=== PATIENT | female | born 1935 | race Caucasian/White ===

== ENCOUNTER → 2017-12-21 18:19 | Outpatient (REF) | payer MEDICARE, OTHER, SELFPAY | LOC: LAB 18:19 | PROVIDERS: PCP Dermatology | DX: Z48.817 Encounter for surgical aftercare following surgery on the skin and subcutaneous tissue (principal) | CPT/HCPCS: 87070; 87075; 87077; 87186; 87205 ==

== ENCOUNTER → 2018-10-22 14:05 | Outpatient (CLI) | payer MEDICARE, OTHER, SELFPAY ==
[2018-10-22 14:25] LABS: RBC Urine None Seen (0-5/HPF)
[2018-10-22 14:54] LABS: Add Manual Diff / Slide Review NO; Basophils Absolute Auto 0 /uL (0-100); Basophils Percent Auto 0.4 % (0-2); Eosinophils Absolute Auto 100 /uL (0-450); Eosinophils Percent Auto 1.4 % (2-4); Hematocrit 41.1 % (36-46); Lymphocytes Absolute Auto 1900 /uL (1100-4500); Lymphocytes Percent Auto 28.4 % (25-40); Mean Corpuscular HGB Conc 34.2 % (30-36); Mean Corpuscular Hemoglobin 31.7 PG (26-34); Mean Corpuscular Volume 92.8 fL (80-100); Monocytes Absolute Auto 500 /uL (0-900); Neutrophils Absolute Auto 4200 /uL (1500-7000); Neutrophils Percent Auto 62.8 % (50-75); Platelet Count 225 X10^3/uL (150-400); Red Blood Cell Count 4.43 X10^6/uL (4.0-5.2); Red Cell Distribution Width 12.9 % (11.6-14.8); White Blood Cell Count 6.8 X10^3/uL (4.5-11.0)
[2018-10-22 15:14] LABS: Hemoglobin A1C% w Est Avg Glu 6.4 % (4.0-6.0)
[2018-10-22 15:16] LABS: BUN Creatinine Ratio 18.6 (6-22); Blood Urea Nitrogen 13 mg/dL (7-17); Calcium 10.2 mg/dL (8.4-10.2); Carbon Dioxide 31 mmol/L (22-32); Chloride 97 mmol/L (98-107); Estimated Glomerular Filt Rate > 60.0 mL/min (>60); Glucose 124 mg/dL (80-110); HEMOLYSIS < 15 (0-50); Sodium 137 mmol/L (137-145)
[2018-10-22 18:09] LABS: Appearance Urine UA CLOUDY; Bilirubin Urine UA NEGATIVE (NEGATIVE); Color Urine UA YELLOW; Glucose Urine UA NEGATIVE (Negative); Ketones Urine UA NEGATIVE (NEGATIVE); Leukocyte Esterase Urine UA 3+ (NEGATIVE); Nitrite Urine UA NEGATIVE (Negative); Occult Blood Urine UA TRACE-LYSED (Negative); Protein Urine UA NEGATIVE (Negative); Urobilinogen Urine UA 0.2 E.U./dL (0.2); pH Urine UA 7.5 (4.5-8.0)
[2018-10-22 18:22] LABS: Bacteria Urine Few (2-10); Squamous Epithelial Cell Urine 10-30 /HPF (0-5/HPF); WBC Urine 0-1/HPF (0-5/HPF)
== END ==
PROVIDERS: Family Provider Internal Medicine; PCP Internal Medicine; Visit Provider Orthopaedic Surgery
DX: Z01.818 Encounter for other preprocedural examination (principal); Z01.812 Encounter for preprocedural laboratory examination; N39.9 Disorder of urinary system, unspecified; R73.9 Hyperglycemia, unspecified; Z13.1 Encounter for screening for diabetes mellitus
CPT/HCPCS: 36415; 80048; 81001; 83036; 85025; 93005

== ENCOUNTER 2018-11-16 06:06 | Inpatient (IN) | payer MEDICARE, OTHER, SELFPAY ==
[2018-11-03 08:57] VITALS: BMI 27.4
[2018-11-16] VITALS (20 sets, daily range): BP systolic 98–173; BP diastolic 46–90; PULSE 58–99; RESP 8–18; TEMP 35.9–36.6; O2SAT 92–100; BMI 27.6
--- NOTE | 2018-11-16 | DI.RAD.S_ITS ---
PROCEDURE: XR HIP W PEL IF DONE RT 2V INDICATIONS: POST OPERATIVE RIGHT HIP TECHNIQUE: AP pelvis and lateral view of the pelvis and hip acquired. COMPARISON: [facility], CR, XR HIP W PEL IF DONE RT 2V, 11/16/2018, 9:34. FINDINGS: Bones: Patient is status post bilateral hip arthroplasty procedures, with hardware components in expected positions. The right hip joint appears to be the laterality of recent surgery earlier today, and the left hip arthroplasty appears chronic. Right hip arthroplasty components are congruent and normally aligned. The visualized bony structures appear intact. Soft tissues: Overlying postoperative changes are noted. No suspicious soft tissue densities. IMPRESSION: Normal alignment established after right total hip arthroplasty. Dictated by: Rafael Agudelo M.D. on 11/16/2018 at 12:43 Approved by: Rafael Agudelo M.D. on 11/16/2018 at 12:44
--- NOTE | 2018-11-16 06:00 | DI.RAD.S_ITS ---
PROCEDURE: XR HIP W PEL IF DONE RT 2V INDICATIONS: ANTERIOR RIGHT HIP TECHNIQUE: Multiple views of the right hip were acquired. COMPARISON: None. FINDINGS: Bones: No fractures or dislocations. No evidence of arthroplasty loosening from this examination. Additional left hip arthroplasty is present No suspicious bony lesions. The visualized pelvic ring appears intact. Soft tissues: No suspicious soft tissue calcifications or masses. IMPRESSION: Motion of the right lower extremity was performed during image acquisition and no evidence of device loosening or disruption at the right total hip arthroplasty is found. Partially visualized left total hip arthroplasty incidentally noted but not fully evaluated. Dictated by: Rafael Agudelo M.D. on 11/16/2018 at 11:39 Approved by: Rafael Agudelo M.D. on 11/16/2018 at 11:40
[2018-11-16] MEDS: VANCOMYCIN 1,000 MG/200 ML PIGGYBACK 200 MG IV (06:48)
[2018-11-16] MEDS: CELECOXIB 200 MG CAPSULE PO (06:48)
[2018-11-16] MEDS: LACTATED RINGERS 1,000 ML 42 ML IV ×2 (06:48→09:26)
[2018-11-16] MEDS: ACETAMINOPHEN 325 MG TABLET 975 MG PO ×3 (06:48→21:40)
[2018-11-16] MEDS: PREGABALIN 75 MG CAPSULE PO (06:48)
--- NOTE | 2018-11-16 07:33 | SUR.OPER ---
Head on pillow. Supine on Ethel table with operative leg secured in traction. Other leg secured in padded stirrup. Arms across chest, secured with sheet.
--- NOTE | 2018-11-16 07:46 | PM.PREOP ---
Pre-operative Note Interval Note History & Physical reviewed/Exam performed by Physician: Yes Changes to H&P: No
--- NOTE | 2018-11-16 07:54 | P.OP_ITS ---
Operative Date/Time/Diagnoses Date of procedure: 11/16/18 Time of procedure: 07:46 Pre-op diagnosis: right hip OA Post-op diagnosis: same Procedure & Clinicians Procedure: right total hip arthroplasty Same procedure as scheduled: Yes Indications: The patient has had progressively worsening right hip pain with radiographic changes consistent with arthritis. Non-operative management has failed and the patient has requested total hip replacement. The risks, benefits and alternatives to surgery were discussed with the patient prior to proceeding. Risks discussed included, but were not limited to, failure to relieve pain, leg length discrepancy, dislocation, stiffness, infection, nerve damage, deep venous thrombosis, pulmonary embolism, stroke, coma, heart attack, permanent paralysis and , as well as the potential need for eventual revision of the prosthetic. Surgeon: Rosangela Lopez Condominium Property Manager: Carmina Roach Anesthesia Type: General and Spinal Operative Notes Findings: Severe right hip osteoarthritis, adequate stability Closure Type: primary Specimen(s): none sent Prosthetic devices, grafts, tissues, transplants, or devices: Lopez [employer] Nephew anthology size 6 standard offset, 56 R3 cup, neutral poly liner, 36 by -3 femoral head, 6.5 mm x 15 mm screw Estimated Blood Loss (mL): 250 Blood products transfused: none Procedure in detail: The patient was brought to the operating room. Patient was carefully positioned in the supine position. Time-out was performed and antibiotics were given. Anesthesia was induced. She was positioned in the on the table in order to allow hyperextension of the hip. The right lower extremities were prepped and draped in a standard sterile fashion. An anterior right hip incision was made 1 fingerbreadth lateral to the anterior superior iliac spine and extended distally towards the greater trochanter. Dissection was carried out through skin and subcutaneous tissues. The skin and subcutaneous tissues were carefully injected with Lidocaine with epi. Superficial hemostasis was achieved. The fascia over the tensor fascia catherine was defined and incised with a knife. Two Allis clamps were used to grasp the fascia. Tensor fascia catherine was retracted laterally. A gelpi retractor was placed. Dissection was carried out down along the neck. The circumflex vessels were carefully identified and cauterized with the Aqua Mantis. There was good visualization of the femoral neck. A Cobra was placed superior to the neck and the gluteus fibers were carefully stripped from that superior aspect of the capsule. A 2nd retractor was placed along the inferior aspect of the neck. The rectus insertion along the capsule was partially released. A 3rd retractor that was then gently placed over the rim of the acetabulum under the rectus. Capsule was carefully incised and released from the intertrochanteric line circumferentially superior to the mid sagittal line and inferiorly to the mid sagittal line until the lesser trochanter was palpable. A tag stitch was placed both in the superior and inferior limb of the capsular insertion. Along the acetabulum capsule was also released up to the mid sagittal 12:00 position. A portion of the labrum was resected. A saw was used to perform an osteotomy at the level of the intertrochanteric line and the junction of the superior femoral neck leaving approximately 1 finger breath of residual inferior neck above the lesser trochanter. A 2nd cut was made along the femoral neck at the base of the head and a napkin ring of neck was removed. Corkscrew was placed in the femoral head and the head was removed without difficulty. Retractors were then repositioned around the acetabulum. Residual labrum was resected and additional osteophytes were removed. A reamer that was 4 mm below the templated size was placed by hand in the acetabulum and it was reamed to centralize the acetabulum. It was then reamed up to 2 under the templated size and fluoroscopy was brought in to confirm the position of the reaming and depth of reaming. I reamed 1 under the anticipated size. A trial cup was placed and noted that it was appropriately sized and fluoroscopy confirmed position and depth. The component was open and inserted without difficulty fluoroscopic imaging was used to confirm that the cup had been adequately seated and was well positioned. A single stabilizing screw 6.5 mm x 15 mm was placed. There was good stability of the cup. Neutral poly liner was placed. The cup was tested and noted to be stable. Attention was then directed to the femur. The femur was gently hyperextended additional capsular release was performed as needed in order to allow adequate visualization of the proximal femur with elevation of the femur. Patient was placed in a hyperextended slightly adducted position with maximum external rotation. Box osteotome was used to check for any residual neck as well as sclerotic bone along the trochanter. Berclair pepper was placed in the femur. Additional broaching was performed. Canal finder was used to determine the alignment of the canal and position. Size 1 broach was placed. The canal was then appropriately broached up to the templated size as long as there was adequate stability of the broach and serial advancement of the broach without excessive impingement. Specific attention was directed at avoiding varus attempting to direct the distal aspect of the broach more anteriorly and avoiding excessive anteversion. Trial reduction showed acceptable range of motion, good stability, no posterior impingement, yarsanism of leg length and appropriate lateral shuck. I also hyperflexed the hip and checked that there was no impingement anteriorly and there was good stability with flexion, abduction and internal rotation. Marcaine and Exparel were injected.. The stem was placed without difficulty. Repeat trial reduction and x-ray showed acceptable overall position, length, and no evidence of the femoral fracture. Final head was placed. Wound was meticulously irrigated with normal saline. The hip was reduced and additional Exparel and Marcaine were injected. The capsule was closed with interrupted nonabsorbable sutures. The fascia of the tensor was closed with interrupted and running Vicryl. No drain was placed. Any tensor fascia catherine muscle that appeared to be contused or injured which was a minimal amount was carefully resected. Capsule around the tensor was injected with Exparel and Marcaine. The skin was closed with barbed stitches for the subcutaneous tissue and skin. We also used surgical glue. The wound was dressed sterilely. Brief Betadine soak was also used and was meticulously irrigated with normal saline. Patient was transferred to recovery room in satisfactory condition. Complications: none Condition: stable Disposition: Acute Care Plan for aftercare: The patient will be maintained on a standard total hip replacement protocol with weight bearing as tolerated and anterior hip precautions. The patient will receive Aspirin and sequential compression devices for DVT prophylaxis. The patient will be discharged home when safe for the home environment.
[2018-11-16] MEDS: CEFAZOLIN 2 GM/100 ML FROZ.PIGGY IV ×3 (08:00→23:50)
--- NOTE | 2018-11-16 08:39 | PC.NURSE ---
Day shift: Pt not on AC unit at this time.
[2018-11-16] MEDS: BUPIVACAINE LIPOSOME 266 MG/20 ML VIAL INJ (08:42)
[2018-11-16] MEDS: TRANEXAMIC ACID 1,000 MG VIAL 1000 MG INJ ×2 (08:42→11:19)
[2018-11-16] MEDS: BUPIVACAINE 0.25% W/ EPI 30 ML VIAL 60 ML INJ (08:43)
--- NOTE | 2018-11-16 13:11 | PC.NURSE ---
Day shift: Pt on AC unit at approx 1310 from PACU. Oriented to room and call light. 5 family members at bedside for support. VS WNL. Pt is sleepy. On 1L NC 94%. SCD's in place. 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 Anterior rt hip Aqquacel is CDI. Ice applied.
--- NOTE | 2018-11-16 13:18 | PC.NURSE ---
Day shift: Update. Pt on RA 95%.
[2018-11-16] MEDS: LACTATED RINGERS 1,000 ML 125 ML IV ×2 (15:47→21:42)
--- NOTE | 2018-11-16 16:00 | PT.IIE ---
Current Diagnoses Unilateral primary osteoarthritis, right hip (11/16/18) Pain in right hip (11/16/18) Surgery Performed Operation Date: 11/16/18 07:45 Actual Procedures p Total Hip Arthroplasty/Anterior Approach(Right) - Rosangela Lopez MD Surgical History (Last Updated 11/03/18 @ 09:16 by Chica Gibbs, RN) History of total left hip arthroplasty (Acute 02/05/13) Hx of bilateral cataract extraction (Acute) Medical History (Last Updated 11/03/18 @ 12:24 by Chica Gibbs RN) BCC (basal cell carcinoma) (Acute) Benign essential tremor (Acute) Diabetes (Acute) H/O: hysterectomy (Acute) HLD (hyperlipidemia) (Acute) HTN (hypertension) (Acute) Osteoarthritis (Acute) Prolapsed bladder (Acute) SCC (squamous cell carcinoma) (Acute) Physical Therapy Inpatient Evaluation/Re-Eval M1 PT/OT-IP Prior Functional Status Start: 11/16/18 17:45 Freq: NEEDED Status: Active Protocol: Document 11/16/18 16:00 AB (Rec: 11/16/18 17:59 AB [id number]) Medical Review Prior Functional Status Medical History Reviewed Yes Communication able to make needs known Mobility and Gait pt stated that she is independent with all mobilities and ambulation without AD Social History Household Members none Living Arrangements House Number of Floors (Floors) One Floor Number of Stairs To Enter/Railing? pt lives in the same property as her daughter. no steps to enter Home Environment High Toilet Walk in Shower Home Equipment Front Wheel Walker Shower Seat with Backrest Hand Held Shower Grab Bars In Shower Additional Social History Comment pt stated that she sleeps on a recliner M2 PT-IP Current Condition Start: 11/16/18 17:45 Freq: NEEDED Status: Active Protocol: Document 11/16/18 16:00 AB (Rec: 11/16/18 17:59 AB [id number]) Physical Therapy Current Condition Current Condition Evaluation Date 11/16/18 Treatment Diagnosis s/p R LASHONDA anterior approach; difficulty in walking Onset Date 11/16/18 Precautions Anterior Hip Precautions No Hip Extension No Hip External Rotation Weight Bearing Status Weight Bearing Status Weight Bear as Tolerated M3 PT-IP Subjective Start: 11/16/18 17:45 Freq: NEEDED Status: Active Protocol: Document 11/16/18 16:00 AB (Rec: 11/16/18 17:59 AB [id number]) Subjective Physical Therapy Visit Type Type Initial Evaluation Visit Start Time 16:00 Visit Stop Time 16:40 Total Visit Minutes 40 Number of BLOCK AND CASE MAKER Visits 0 Physical Therapy Visit Comments Patient Comments pt agreeable to do PT Therapy Pain Assessment Pain Present Pain Present Denied Pain M4 PT-IP Mobility and Gait Start: 11/16/18 17:45 Freq: NEEDED Status: Active Protocol: Document 11/16/18 16:00 AB (Rec: 11/16/18 17:59 AB [id number]) PT-Bed Mobility Assessment Supine to Sit Supine to Sit Standby Assistance PT-Transfer Assessment Sit to and From Stand Sit to and from Stand Minimal Assistance Equipment Transfer Assistive Device Gait Belt Front Wheeled Walker Orthotic/Prosthetic Devices or Brace: No Transfers Transfer Destination Toilet Transfer Technique pt ambulated using FWW Transfer Ability Level of Assist Minimal Assistance 1 Person Assistance Use of Upper Extremities Comments Mobility Comments BP in supine 123/68. pt completed bed mobility supine to sit SBA. c/o feeling dizzy . BP: 141/73. pt requested to use the toilet. pt ambulated to the toilet using FWW min A and cues for hip precautions. pt's daughter in room with pt. PT stepped out to let NAC know that pt needs a brief. when PT came back, pt was coughing. daughter stated that pt drank some water and usually has coughs afterwards even prior to surgery due to allergies. pt then threw up. assisted with gown change. nurse and NAC also present. pt ambulated out of the room min A using FWW and instructed to sit on chair. BP checked: 151/78. pt requested to do more ambulation and completed. positioned pt on chair and after a few minutes again, pt was coughing and threw up. NAC informed and NAC took over to assist pt. informed pt's nurse regarding coughing after drinking water and to observe pt and if needed, request for speech eval/screen order. Nurse understood and agreed. Gait Assessment Gait Gait Assistance Required: Minimum Assistance Distance (Feet) 35 Able to Maintain Weight Bearing Status Yes During Gait Assistive Devices Assistive Device Gait Belt Front Wheeled Walker Orthotic/Prosthetic Devices or Brace: No Gait Deviations General Gait Pattern Antalgic Decreased Feet Clearance Factors Limiting Gait Function Factors Limiting Gait Function Decreased Activity Tolerance Decreased Strength Difficulty Following Directions Poor Balance Poor Safety Awareness PT-Balance Assessment Sitting Balance and Reactions Static Sitting Balance Ability Good Dynamic Sitting Balance Ability Good Standing Balance and Reactions Static Standing Balance Ability Fair Dynamic Standing Balance Ability Fair Device Used FWW M5 PT-IP Objective Assessments Start: 11/16/18 17:45 Freq: NEEDED Status: Active Protocol: Document 11/16/18 16:00 AB (Rec: 11/16/18 17:59 AB [id number]) Orientation Orientation/Cognition Level of Alertness Alert Orientation Name Place Situation Safety Awareness Decreased Safety Awareness Memory Description Short Term Impaired Gross Range of Motion Lower Extremity ROM Assessment Within Functional Limits Strength Lower Extremity Strength Assessment Right Impaired Hip 3+/5 Knee 4-/5 Coordination Assessment Gross Coordination Gross Coordination WNL Sensation Assessment Sensation Gross Sensation WNL Muscle Tone Muscle Tone WNL Yes M6 PT-IP Treatment Start: 11/16/18 17:45 Freq: NEEDED Status: Active Protocol: Document 11/16/18 16:00 AB (Rec: 11/16/18 17:59 AB [id number]) Physical Therapy Treatment Education Education Provided Precautions Weight Bearing Status Post-Op Packet Safety M7 PT-IP Assessment and Plan Start: 11/16/18 17:45 Freq: NEEDED Status: Active Protocol: Document 11/16/18 16:00 AB (Rec: 11/16/18 17:59 AB [id number]) PT Summary Assessment and Plan Potential Rehabilitation Potential Good Status of Condition at Evaluation Evolving Summary Impairments Pain ROM Strength Balance Coordination Sensation Tone Cognition Bed Mobility Transfers Gait Activity Tolerance Assessment Summary pt requiring min A with mobility but max cues to maintain hip precautions. pt plans to go home and her daughter will stay with pt. pt will likely improve during hospital stay. will conduct caregiver traiing when appropriate. Goals Bed Mobility Goal Independent Transfer Goal Independent Front Wheeled Walker Gait Goal Independent Front Wheel Walker Gait Distance 200 Days to Meet Goals 3 Frequency of Treatment Frequency Of Treatment Twice a Day Treatment Plan Physical Therapy Treatment Plan Bed Mobility Training Transfer Training Gait Training Therapeutic Exercise Balance Retraining Post Op Education Discharge Planning Hot or Cold Pack Neuromuscular Re-ed Coordination Retraining Manual Therapy Other Recommendations and Next Treatment ambulation Focus Recommendations To Nursing Amount of Assist Needed 1 Person Assist Discharge Recommendations PT Discharge Recommendations Home with Assistance Outpatient PT
[2018-11-16] MEDS: ONDANSETRON 4 MG/2 ML INJ IV (16:23)
--- NOTE | 2018-11-16 19:35 | PC.NURSE ---
Pt had 2 occurrences of emesis (500ml) after drinking a large amount of water and then moving around room. Denies nausea, zofran given with improvement in symptoms. Up with PT and walked to bathroom- pt was unable to void. Back to chair where pt slept until 1900. Had unmeasured void and walked 2 laps around the unit. Denies pain. Dressing remains CDI to R hip. Education given on ant hip precautions.
[2018-11-16] MEDS: ASPIRIN EC 81 MG TABLET PO (21:40)
[2018-11-16] MEDS: DOCUSATE 100 MG CAPSULE PO (21:40)
[2018-11-17 06:00] VITALS: BP 111/53; PULSE 80; RESP 17; TEMP 36.8; O2SAT 96
[2018-11-17 06:20] LABS: Hematocrit 30.1 % (36-46); Hemoglobin 10.5 g/dL (12.0-16.0)
[2018-11-17 08:15] VITALS: BP 105/48; PULSE 80; RESP 14; TEMP 37.7; O2SAT 95
[2018-11-17] MEDS: ACETAMINOPHEN 325 MG TABLET 975 MG PO (08:56)
[2018-11-17] MEDS: ASPIRIN EC 81 MG TABLET PO (08:56)
[2018-11-17] MEDS: LISINOPRIL 10 MG TABLET PO (08:56)
[2018-11-17] MEDS: ATORVASTATIN 20 MG TABLET 40 MG PO (08:56)
[2018-11-17] MEDS: DOCUSATE 100 MG CAPSULE PO (08:56)
--- NOTE | 2018-11-17 09:03 | P.DS_ITS ---
History of Present Illness Date Patient Seen: 11/17/18 Time Patient Seen: 09:00 Chief complaint: [id number] Narrative: Patient's pain is mild. Denies fever chills. No nausea vomiting. She has no cough or shortness of breath. She was up with physical therapy walking around the room. Otherwise without complaints. She does have her daughter's home to assist her. Discharge Providers Date of admission: 11/16/18 06:06 Discharge Date: 11/17/18 Primary care physician: Kemar Richardson MD Consults: 11/16/18 06:00 Consult to Anesthesiology Routine Comment: Consulting Provider: Anesthesiologist Reason for consultation: Regional block for post operative pain control 11/16/18 13:10 Consult to Discharge Planning Routine Comment: Consult to Physical Therapy Evaluate & Treat Comment: Physician Instructions: post op LASHONDA protocol Consult to Respiratory Therapy Evaluate & Treat Comment: Physician Instructions: Evaluate and treat Discharge provider: Lalito Zhu PA-C Summary Discharge Diagnosis: Status post right total hip arthroplasty secondary to severe right hip DJD Hospital Course: The patient has had progressively worsening right hip pain with radiographic changes consistent with arthritis. Non-operative management has failed and the patient has requested total hip replacement. The risks, benefits and alternatives to surgery were discussed with the patient prior to proceeding. Risks discussed included, but were not limited to, failure to relieve pain, leg length discrepancy, dislocation, stiffness, infection, nerve damage, deep venous thrombosis, pulmonary embolism, stroke, coma, heart attack, permanent paralysis and , as well as the potential need for eventual revision of the prosthetic. Surgeon: Rosangela Lopez Nurse Midwife/Clinical Instructor: Carmina Roach Anesthesia Type: General and Spinal Operative Notes Findings: Severe right hip osteoarthritis, adequate stability Closure Type: primary Specimen(s): none sent Prosthetic devices, grafts, tissues, transplants, or devices: Lopez [employer] Nephew anthology size 6 standard offset, 56 R3 cup, neutral poly liner, 36 by -3 femoral head, 6.5 mm x 15 mm screw Estimated Blood Loss (mL): 250 Blood products transfused: none Patient failed outpatient treatment. Admitted to the hospital for right total hip arthroplasty. Patient consented to the same. Patient taken to the operating room underwent right total hip arthroplasty. Patient back in her room in stable condition. She has been up with physical therapy. Daughters are home to assist her. She feels ready to go home. Status at Discharge Cognitive/behavioral status at discharge: at baseline, oriented Functional status at discharge: uses cane/walker Overall status at discharge: patient is progressing back to baseline Time Spent with Patient Less than 30 minutes Exam Vital Signs (past 8 hours): - 11/17/18 06:00 11/17/18 08:15 Temperature 98.3 F 99.8 F H Pulse Rate 80 80 Respiratory Rate 17 14 Blood Pressure 111/53 L 105/48 L Pulse Oximetry 96 95 Oxygen Delivery Method Room Air Oxygen Flow Rate 0 Narrative Exam Narrative: Pleasant 82-year-old female resting comfortably in bed in no apparent distress. Right hip dressing is clean, dry and intact. Right leg is warm and dry. Sensation grossly intact to light touch. Motor function is intact distally. Objective Labs Result Diagrams: 11/17/18 05:45 Labs: Laboratory Results - last 24 hr 11/17/18 05:45 Hgb 10.5 L Hct 30.1 L Discharge Plan Discharge Plan Patient Disposition: Home Discharge comment: DC home today after PT Discharge Med Rec/Prescriptions Prescriptions: New tramadol 50 mg Tablet 50 mg PO QID PRN (Reason: Pain, Moderate (4-6)) Qty: 30 RF: 0 Continued atorvastatin 40 mg Tablet 40 mg PO QAM RF: 0 aspirin [Aspir-81] 81 mg Tablet,Delayed Release (Dr/Ec) 81 mg PO DAILY RF: 0 lisinopril 10 mg Tablet 10 mg PO DAILY RF: 0 hydrochlorothiazide 25 mg Tablet 25 mg PO DAILY RF: 0 Follow up/Referrals: Kemar Richardson MD [Primary Care Provider] - Rosangela Lopez MD [Physician] - (SNO in 1 wk) Provider Discharge Instructions Diet: Diet as Tolerated Activity: Per [facility] Cold/Heat Therapy: Per [facility] Skin/Wound/Dressing Care Report to your healthcare provider any signs of infection, such as:: chills, fever, increased pain, unusual drainage and unusual redness Dressing: Keep clean and dry Discharge Data Primary Care Provider: Kemar Richardson Attending Provider: Rosangela Lopez Admit Date/Time: 11/16/18 06:06
[2018-11-17] MEDS: hydroCHLOROthiazide 25 MG TABLET PO (09:04)
--- NOTE | 2018-11-17 09:11 | CM.DANOTE ---
DCP: Case received, EMR reviewed and met with patient. Introduced self and role. Was able to obtain baseline health and living situation from patient. DCP assessment completed with information currently available. Patient is an 82 year old female who admitted yesterday morning to the care of the orthopedic team. PCP: Dr. Richardson. Payer: confirmed: Medicare/[employer]. Patient came to the hospital for a surgical procedure. She had R. Total Hip Arthroplasty. Patient has a history of chronic hip pain. Met with patient in her room. Pleasant. Alert and oriented. Stated that she has been independent prior to her surgery, and already has outpatient physical therapy set up. She has six children all together. One of her daughters, Wes, who is from [place], will be staying with her. She has another daughter who is older, Darby, who will also help her out. P: Patient is to be discharged today for home. She will still work with physical therapy before she is discharged home. Berna Yun RN/Speedboat Operator
--- NOTE | 2018-11-17 11:00 | PT.IPTN ---
Current Diagnoses Unilateral primary osteoarthritis, right hip (11/16/18) Pain in right hip (11/16/18) Surgery Performed Operation Date: 11/16/18 07:45 Actual Procedures p Total Hip Arthroplasty/Anterior Approach(Right) - Rosangela Lopez MD Physical Therapy Treatment Note M2 PT-IP Current Condition Start: 11/16/18 17:45 Freq: NEEDED Status: Active Protocol: Document 11/16/18 16:00 AB (Rec: 11/16/18 17:59 AB [id number]) Physical Therapy Current Condition Current Condition Evaluation Date 11/16/18 Treatment Diagnosis s/p R LASHONDA anterior approach; difficulty in walking Onset Date 11/16/18 Precautions Anterior Hip Precautions No Hip Extension No Hip External Rotation Weight Bearing Status Weight Bearing Status Weight Bear as Tolerated M3 PT-IP Subjective Start: 11/16/18 17:45 Freq: NEEDED Status: Active Protocol: Document 11/17/18 10:54 GGD (Rec: 11/17/18 11:41 GGD [id number]) Subjective Physical Therapy Visit Type Type Treatment Note Visit Start Time 10:25 Visit Stop Time 10:54 Total Visit Minutes 24 Number of [employer] Visits 1 Physical Therapy Visit Comments Patient Comments Pt states she would like to walk. Therapy Pain Assessment Pain Present Pain Present Denied Pain M4 PT-IP Mobility and Gait Start: 11/16/18 17:45 Freq: NEEDED Status: Active Protocol: Document 11/17/18 10:54 GGD (Rec: 11/17/18 11:41 GGD [id number]) PT-Bed Mobility Assessment Supine to Sit Supine to Sit Standby Assistance Scooting Scooting to Edge of Bed Independent PT-Transfer Assessment Sit to and From Stand Sit to and from Stand Standby Assistance Contact Guard Assistance Use of Upper Extremities Equipment Transfer Assistive Device Gait Belt Front Wheeled Walker Orthotic/Prosthetic Devices or Brace: No Transfers Transfer Destination Chair Toilet Transfer Ability Level of Assist Standby Assistance 1 Person Assistance Use of Upper Extremities Gait Assessment Gait Gait Assistance Required: Minimum Assistance Distance (Feet) 600 Able to Maintain Weight Bearing Status Yes During Gait Assistive Devices Assistive Device Gait Belt Front Wheeled Walker Orthotic/Prosthetic Devices or Brace: No Gait Deviations General Gait Pattern Antalgic Decreased Feet Clearance Factors Limiting Gait Function Factors Limiting Gait Function Decreased Activity Tolerance Decreased Strength Difficulty Following Directions Poor Balance Poor Safety Awareness M5 PT-IP Objective Assessments Start: 11/16/18 17:45 Freq: NEEDED Status: Active Protocol: Document 11/16/18 16:00 AB (Rec: 11/16/18 17:59 AB [id number]) Orientation Orientation/Cognition Level of Alertness Alert Orientation Name Place Situation Safety Awareness Decreased Safety Awareness Memory Description Short Term Impaired Gross Range of Motion Lower Extremity ROM Assessment Within Functional Limits Strength Lower Extremity Strength Assessment Right Impaired Hip 3+/5 Knee 4-/5 Coordination Assessment Gross Coordination Gross Coordination WNL Sensation Assessment Sensation Gross Sensation WNL Muscle Tone Muscle Tone WNL Yes M6 PT-IP Treatment Start: 11/16/18 17:45 Freq: NEEDED Status: Active Protocol: Document 11/17/18 10:54 GGD (Rec: 11/17/18 11:41 GGD [id number]) Physical Therapy Treatment Exercises Exercises Ankle Pumps Gluteal Sets Quad Sets Heel Slides Education Education Provided Precautions M7 PT-IP Assessment and Plan Start: 11/16/18 17:45 Freq: NEEDED Status: Active Protocol: Document 11/17/18 10:54 GGD (Rec: 11/17/18 11:41 GGD [id number]) PT Summary Assessment and Plan Summary Assessment Summary Pt improving with mobility. She needed grab bars for sit to stand. She needed min cues for controlled sit on to lower chair. Pt safe for home D/C when medically stable. Frequency of Treatment Frequency Of Treatment Twice a Day Recommendations To Nursing Amount of Assist Needed 1 Person Assist Discharge Recommendations PT Discharge Recommendations Home with Assistance Outpatient PT
[2018-11-17 11:09] VITALS: BP 133/55; PULSE 71; RESP 16; TEMP 36.7; O2SAT 97
== END 2018-11-17 12:31 | disposition home or self-care (01) | DRG 470 ==
PROVIDERS: Admitting Provider Orthopaedic Surgery; Family Provider Internal Medicine; PCP Internal Medicine; Visit Provider Orthopaedic Surgery
PROC: 0SR902Z Replacement of Right Hip Joint with Metal on Polyethylene Synthetic Substitute, Open Approach (ICD-10-PCS; CPT 27130; principal; 2018-11-16 07:45)
DX: M16.11 Unilateral primary osteoarthritis, right hip (principal); I10 Essential (primary) hypertension; E11.9 Type 2 diabetes mellitus without complications; Z96.642 Presence of left artificial hip joint; E78.2 Mixed hyperlipidemia
CPT/HCPCS: 36415; 73502; 85014; 85018; 94760; 94762; 97116; 97162; 97530; C1776; C9290; J0690; J2250; J2274; J2405; J2704; J3010